=== PATIENT | female | born 1995 | race Caucasian/White ===

== ENCOUNTER 2017-12-05 23:00 | Emergency (ER) | payer OTHER ==
--- NOTE | 2017-12-05 23:57 | ED Physician Documentation ---
PD HPI NECK PAIN - Stated complaint Stated Complaint: NECK PX - Chief complaint Chief Complaint: Trauma Hd/Nk - History obtained from History obtained from: Patient - History of Present Illness Timing - onset: Enter time (21:30), Today Timing - details: Abrupt onset Location: Mid, Lower, Left Quality: Pain, Spasm Associated symptoms: No: Weakness, Numbness, Incontinent of urine, Unable to urinate, Hematuria, Incontinent of stool Improves with: Rest Worsened by: Movement Similar symptoms before: Has not had sx before Recently seen: Not recently seen - Additional information Additional information: When getting out of shower tonight, sudden onset left-sided posterior neck pain that is distinctly worse with movement. denies numbness, weakness. Denies h/o similar problem. Review of Systems Musculoskeletal: reports: Neck pain. denies: Back pain Neurologic: denies: Generalized weakness, Focal weakness, Numbness, Headache, Head injury PD PAST MEDICAL HISTORY - Past Medical History Past Medical History: No - Past Surgical History Past Surgical History: No - Present Medications Home Medications: Ambulatory Orders Medication Instructions Recorded Confirmed Cyclobenzaprine [Flexeril] 10 mg PO TID PRN #20 tablet 12/06/17 oxyCODONE/ACET 5/325 [Percocet 5 1 - 2 each PO Q6H PRN #14 tablet 12/06/17 mg/325 mg] - Allergies Allergies/Adverse Reactions: Allergies Allergy/AdvReac Type Severity Reaction Status Date / Time No Known Drug Allergies Allergy Verified 12/05/17 23:10 - Social History Does the pt smoke?: No Smoking Status: Never smoker Does the pt drink ETOH?: No - Immunizations Immunizations are current?: Yes - POLST Patient has POLST: No PD ED PE NORMAL - Vitals Vital signs reviewed: Yes - General General: Alert and oriented X 3, No acute distress (NAD but maintaining head in "looking straight ahead" position. 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 Will trial muscle relaxant (flexeril) and analgesic (percocet), rest, and return if worse Departure - Departure Disposition: Home, Self Care Clinical Impression: Cervical strain Condition: Good Instructions: ED Sprain Strain Neck, ED Spasm Neck No Injury Follow-Up: LURDES MARIANO PA-C [Primary Care Provider] - Prescriptions: Cyclobenzaprine [Flexeril] 10 mg PO TID PRN #20 tablet PRN Reason: Spasms oxyCODONE/ACET 5/325 [Percocet 5 mg/325 mg] 1 - 2 each PO Q6H PRN #14 tablet PRN Reason: Pain Forms: Activity restrictions Discharge Date/Time: 12/06/17 00:30
[2017-12-06] MEDS ORDERED: CYCLOBENZAPRINE 10 MG Prepack 2 PO STA (00:16)
[2017-12-06] MEDS ORDERED: oxyCODONE/ACET 5/325 Prepack 4 PO STA (00:16)
[2017-12-06 00:40] VITALS: BP 118/80
== END 2017-12-06 00:30 | disposition home or self-care (01) ==
LOC: ED 23:00
DX: S16.1XXA Strain of muscle, fascia and tendon at neck level, initial encounter (principal); X58.XXXA Exposure to other specified factors, initial encounter
CPT/HCPCS: 99283

== ENCOUNTER 2019-05-10 14:42 | Outpatient (CLI) | payer OTHER ==
--- NOTE | 2019-05-10 16:20 | MRI Report ---
Reason: HEADACHE, HYPOTHROIDISM, SLUGGISH LT PUPIL Procedure Date: 05/10/2019 Accession Number: [id number] / [id number] Procedure: MRI - Brain W/O CPT Code: FULL RESULT: EXAM: MRI BRAIN WITHOUT CONTRAST EXAM DATE: 05/10/2019 03:44 PM. CLINICAL HISTORY: Headache, hypothyroidism, sluggish left pupil. COMPARISON: None. TECHNIQUE: Multiplanar, multisequence T1-weighted and fluid-sensitive MR sequences of the brain were performed. Sequences optimized for routine evaluation. Other: None. IV Contrast: None. FINDINGS: No abnormal restricted diffusion signal or magnetic susceptibility is present in the brain parenchyma. The sella turcica is partially empty and slightly expanded. Ventricles and sulci are within normal limits. No extraaxial fluid collections present. No abnormal T2 or FLAIR hyperintensities are present in the brain parenchyma. No mass is present in either orbit. No abnormal T1 shortening is seen in the brain parenchyma. There is an expected flow-void in the major intracranial vessels at the skull base. IMPRESSION: 1. No acute CVA. 2. No intracranial mass. 3. There is a partially empty and slightly expanded sella turcica. This could reflect normal anatomic variation. Clinical correlation for signs of idiopathic intracranial hypertension/pseudotumor cerebri would be of value. RADIA
== END 2019-05-10 14:43 | disposition home or self-care (01) ==
LOC: DI 14:42
PROVIDERS: ATTEND General Practice
DX: R51 Headache (principal)
CPT/HCPCS: 70551

== ENCOUNTER 2019-10-21 23:26 | Emergency (ER) | payer OTHER ==
--- NOTE | 2019-10-21 23:38 | ED Physician Documentation ---
History of Present Illness - Stated complaint Stated Complaint: MIR/STIFF NECK - Chief complaint Chief Complaint: Neuro - History obtained from History obtained from: Patient (The patient is a 24-year-old female presents to the ER with a chief complaint of 3 to 4-day headache after she had a lumbar puncture for diagnostic study for idiopathic intracranial hypertension [facility]. Today she is present with headache that is not relieved by lying supine it is worse when she has to sit upright she reports nausea photophobia and neck discomfort without fevers.She tried taking aspirin as well as Tylenol and ibuprofen without residual of her symptoms.) Review of Systems Constitutional: reports: Reviewed and negative Eyes: reports: Reviewed and negative Ears: reports: Reviewed and negative Nose: reports: Reviewed and negative Throat: reports: Reviewed and negative Cardiac: reports: Reviewed and negative Respiratory: reports: Reviewed and negative GI: reports: Reviewed and negative : reports: Reviewed and negative Skin: reports: Reviewed and negative Musculoskeletal: reports: Reviewed and negative Neurologic: reports: Headache Psychiatric: reports: Reviewed and negative Endocrine: reports: Reviewed and negative Immunocompromised: reports: Reviewed and negative PD PAST MEDICAL HISTORY - Past Surgical History Past Surgical History: No - Present Medications Home Medications: Ambulatory Orders Medication Instructions Recorded Confirmed Levothyroxine [Synthroid] 125 mcg PO DAILY 10/21/19 10/21/19 Metformin HCl 500 mg PO DAILY 10/21/19 10/21/19 Sertraline HCl [Zoloft] 100 mg PO DAILY 10/21/19 10/21/19 buPROPion HCL [Bupropion HCl] 100 mg PO DAILY 10/21/19 10/21/19 Hydrocodone/Acetaminophen [[place] 1 each PO Q6HR PRN #7 tablet 10/22/19 5-325 Tablet] Ondansetron Odt [Zofran] 4 mg TL Q6H PRN #10 tablet 10/22/19 - Allergies Allergies/Adverse Reactions: Allergies Allergy/AdvReac Type Severity Reaction Status Date / Time No Known Drug Allergies Allergy Verified 10/21/19 23:38 - Social History Does the pt smoke?: No Smoking Status: Never smoker Does the pt drink ETOH?: No - Immunizations Immunizations are current?: Yes - POLST Patient has POLST: No PD ED PE NORMAL - Vitals Vital signs reviewed: Yes - General General: Alert and oriented X 3, No acute distress, Well developed/nourished, Other - HEENT HEENT: Atraumatic, PERRL, EOMI, Ears normal, Moist mucous membranes, Pharynx benign, Dentition benign - Neck Neck: Supple, no meningeal sign, No bony TTP, Thyroid normal, No JVD - Cardiac Cardiac: RRR, No murmur, Strong equal pulses - Respiratory Respiratory: No respiratory distress, Clear bilaterally - Abdomen Abdomen: Normal bowel sounds, Soft, Non tender, Non distended, No organomegaly - Back Back: No CVA TTP, No spinal TTP, Other (The lumbar midline space is without signs of infection there is no fluctuance or induration there is no mid line tenderness palpation.) - Derm Derm: Normal color, Warm and dry, No rash - Extremities Extremities: No deformity, No tenderness to palpate, Normal ROM s pain, No edema - Neuro Neuro: Alert and oriented X 3, 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, No motor deficit, No sensory deficit, Normal speech - Psych Psych: Normal mood, Normal affect Results - Vitals Vitals: Vital Signs - 24 hr 10/21/19 10/22/19 10/22/19 23:30 00:50 01:33 Temperature 36.5 C Heart Rate 75 62 74 Respiratory 16 16 15 Rate Blood Pressure 122/91 H 142/78 H 140/87 H O2 Saturation 97 99 100 10/22/19 01:52 Temperature 36.2 C L Heart Rate 74 Respiratory 16 Rate Blood Pressure 127/87 H O2 Saturation 100 Oxygen O2 Source Room air - Labs Labs: Laboratory Tests 10/22/19 10/22/19 10/22/19 00:10 00:10 00:10 WBC 8.2 RBC 5.32 Hgb 13.1 Hct 41.7 MCV 78.4 L MCH 24.6 L MCHC 31.4 L RDW 14.7 Plt Count 250 MPV 10.7 Neut # (Auto) 4.7 Lymph # (Auto) 2.6 [place] # (Auto) 0.7 Eos # (Auto) 0.1 Baso # (Auto) 0.0 Absolute Nucleated RBC 0.00 Nucleated RBC % 0.0 PT 12.4 INR 1.1 APTT 34.2 H Sodium 136 Potassium 3.5 Chloride 102 Carbon Dioxide 26 Anion Gap 8.0 BUN 13 Creatinine 1.0 Estimated GFR (MDRD) 69 L Glucose 93 Calcium 9.0 PD MEDICAL DECISION MAKING - ED course Complexity details: re-evaluated patient (01:57 pain resolved.), considered differential (post LP headache. ), d/w patient, d/w disaster recovery consultant - Consults Consults: Consulted (name) (nigel DELGADO), Discussed case with (cielo singh for EDBP.), Request disaster recovery consultant evaluate patient (EDBP, GATE GUARD will come evaluate patient.) Departure - Departure Disposition: 01 Home, Self Care Clinical Impression: Post lumbar puncture headache Condition: Stable Instructions: ED Headache Post Spinal Tap W Patch Follow-Up: Oscar Hollis MD [Primary Care Provider] - 10/22/19 Prescriptions: Hydrocodone/Acetaminophen [[place] 5-325 Tablet] 1 each PO Q6HR PRN #7 tablet PRN Reason: Pain Ondansetron Odt [Zofran] 4 mg TL Q6H PRN #10 tablet PRN Reason: Nausea / Vomiting Discharge Date/Time: 10/22/19 02:04
[2019-10-21] MEDS ORDERED: ONDANSETRON ODT 4 MG TABLET TL STA (23:50)
[2019-10-21] MEDS ORDERED: HYDROcod/ACETAM 5/325 MG TABLET PO STA (23:50)
[2019-10-21] MEDS ORDERED: CAFFEINE/SODIUM BENZOATE 500 MG in SODIUM CHLORIDE 0.9% 1,000 ML IV STA (23:54)
[2019-10-21] MEDS ORDERED: SODIUM CHLORIDE 0.9% 1,000 ML IV ONE (23:54)
[2019-10-22] MEDS ORDERED: CAFFEINE/SODIUM BENZOATE 500 MG/2 ML VIAL IV ONE (00:04)
[2019-10-22 00:22] LABS: BASOPHILS % (AUTO) 0.5 %; EOSINOPHILS # (AUTO) 0.1 10^3/uL (0.0-0.7); EOSINOPHILS % (AUTO) 1.6 %; HGB - HEMOGLOBIN 13.1 g/dL (12.0-16.0); LYMPHOCYTES # (AUTO) 2.6 10^3/uL (1.5-3.5); LYMPHOCYTES % (AUTO) 31.7 %; MEAN CORPUSCULAR HEMOGLOBIN 24.6 pg (27.0-31.0); MEAN CORPUSCULAR HGB CONC 31.4 g/dL (32.0-36.0); MEAN CORPUSCULAR VOLUME 78.4 fL (81.0-99.0); MEAN PLATELET VOLUME 10.7 fL (7.9-10.8); MONOCYTES # (AUTO) 0.7 10^3/uL (0.0-1.0); MONOCYTES % (AUTO) 8.4 %; NEUTROPHILS # (AUTO) 4.7 10^3/uL (1.5-6.6); NEUTROPHILS % (AUTO) 57.4 %; PLT - PLATELET COUNT 250 10^3/uL (130-450); RED BLOOD COUNT 5.32 10^6/uL (4.20-5.40); RED CELL DISTRIBUTION WIDTH 14.7 % (12.0-15.0); WHITE BLOOD COUNT 8.2 x10^3/uL (4.8-10.8)
[2019-10-22 00:28] LABS: INR 1.1 (0.8-1.2); PT - PROTHROMBIN TIME 12.4 secs (9.9-12.6)
[2019-10-22 00:35] LABS: PARTIAL THROMBOPLASTIN TIME 34.2 secs (24.9-33.3)
[2019-10-22 02:04] VITALS: BP 127/87
== END 2019-10-22 02:04 | disposition home or self-care (01) ==
LOC: ED 23:26
DX: G97.1 Other reaction to spinal and lumbar puncture (principal); Y84.4 Aspiration of fluid as the cause of abnormal reaction of the patient, or of later complication, without mention of misadventure at the time of the procedure; Y92.538 Other ambulatory health services establishments as the place of occurrence of the external cause
CPT/HCPCS: 36415; 80048; 85025; 85610; 85730; 96365; 99284; A9270; Q0162

== ENCOUNTER 2020-03-24 22:07 | Emergency (ER) | payer OTHER ==
--- NOTE | 2020-03-24 23:20 | ED Physician Documentation ---
PD HPI NVD - Stated complaint Stated Complaint: N/V/D/ DIZZINESS - Chief complaint Chief Complaint: Abd Pain - History obtained from History obtained from: Patient - History of Present Illness Timing - onset: Today Timing - duration: Hours Timing - details: Abrupt onset Pain level now: 0 Associated symptoms: No: Fever, Abdominal pain Contributing factors: Recent antibiotics Improved by: Other (nothing) Worsened by: Other (no exacerbating factors) Recently seen: Clinic - Additonal information Additional information: Patient was seen by her doctor yesterday for urinary frequency and burning dysuria, diagnosed with UTI and prescribed Bactrim. She was also prescribed pyridium. She took the first dose of these medications earlier today, and within one hour, she developed nausea, vomiting, and diarrhea. She has never had bactrim before. Review of Systems Constitutional: reports: Reviewed and negative Cardiac: reports: Reviewed and negative Respiratory: reports: Reviewed and negative GI: reports: Nausea, Vomiting, Diarrhea. 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 Psych: Depression, Anxiety - Past Surgical History Past Surgical History: No - Present Medications Home Medications: Ambulatory Orders Medication Instructions Recorded Confirmed Levothyroxine [Synthroid] 125 mcg PO DAILY 10/21/19 10/21/19 Metformin HCl 500 mg PO DAILY 10/21/19 10/21/19 Sertraline HCl [Zoloft] 100 mg PO DAILY 10/21/19 10/21/19 buPROPion HCL [Bupropion HCl] 100 mg PO DAILY 10/21/19 10/21/19 Hydrocodone/Acetaminophen [[place] 1 each PO Q6HR PRN #7 tablet 10/22/19 5-325 Tablet] Ondansetron Odt [Zofran] 4 mg TL Q6H PRN #10 tablet 10/22/19 Cephalexin [Keflex] 500 mg PO Q6H #28 capsule 03/25/20 Diphenoxylate/Atropine [Lomotil] 1 each PO QID PRN #10 tablet 03/25/20 Ondansetron Odt [Zofran] 4 mg TL Q6H PRN #10 tablet 03/25/20 - Allergies Allergies/Adverse Reactions: Allergies Allergy/AdvReac Type Severity Reaction Status Date / Time No Known Drug Allergies Allergy Verified 03/24/20 22:23 - Social History Does the pt smoke?: No Smoking Status: Never smoker Does the pt drink ETOH?: No - Immunizations Immunizations are current?: Yes - POLST Patient has POLST: No PD ED PE NORMAL - Vitals Vital signs reviewed: Yes - General General: Alert and oriented X 3, No acute distress, Well developed/nourished - HEENT HEENT: Moist mucous membranes - Cardiac Cardiac: RRR, No murmur - Respiratory Respiratory: No respiratory distress, Clear bilaterally - Abdomen Abdomen: Soft, Non tender, Non distended - Derm Derm: No rash Results - Vitals Vitals: Vital Signs - 24 hr 03/24/20 03/25/20 22:21 01:45 Temperature 36.0 C L Heart Rate 104 H 88 Respiratory 18 16 Rate Blood Pressure 93/60 104/68 O2 Saturation 97 98 Oxygen O2 Source Room air - Labs Labs: Laboratory Tests 03/24/20 03/24/20 03/24/20 22:35 22:35 23:46 WBC 10.0 RBC 5.80 H Hgb 14.6 Hct 45.6 MCV 78.6 L MCH 25.2 L MCHC 32.0 RDW 15.0 Plt Count 287 MPV 11.4 H Neut # (Auto) 8.2 H Lymph # (Auto) 1.5 [place] # (Auto) 0.2 Eos # (Auto) 0.0 Baso # (Auto) 0.0 Absolute Nucleated RBC 0.00 Nucleated RBC % 0.0 Sodium 135 Potassium 2.9 L Chloride 104 Carbon Dioxide 20 L Anion Gap 11.0 BUN 20 Creatinine 1.0 Estimated GFR (MDRD) 68 L Glucose 153 H Calcium 9.5 Total Bilirubin 0.6 AST 17 ALT 17 Alkaline Phosphatase 61 Total Protein 8.3 H Albumin 4.7 Globulin 3.6 Albumin/Globulin Ratio 1.3 Lipase 34 Urine Color RED/BLOODY Urine Clarity CLEAR Urine pH 5.0 Ur Specific [place] 1.025 Urine Protein Urine Glucose (UA) 250 H Urine Ketones TRACE Urine Occult Blood LARGE H Urine Nitrite Urine Bilirubin COLOR INTERFERENCE Urine Urobilinogen Ur Leukocyte Esterase Urine RBC 11-25 H Urine WBC 11-25 H Ur Squamous Epith Cells RARE Squamous Amorphous Sediment Few Urine Bacteria Moderate H Ur Microscopic Review INDICATED Urine Culture Comments INDICATED Urine HCG, Qual NEGATIVE PD MEDICAL DECISION MAKING - ED course Complexity details: reviewed results, re-evaluated patient, considered differential, d/w patient Departure - Departure Disposition: 01 Home, Self Care Clinical Impression: Vomiting and diarrhea, UTI (urinary tract infection), Hypokalemia Condition: Good Instructions: ED Diet Vomiting Diarrhea, ED Drug React Adverse Other, ED Potassium Deficiency, ED UTI Cystitis Female Follow-Up: Oscar Hollis MD [Primary Care Provider] - Prescriptions: Cephalexin [Keflex] 500 mg PO Q6H #28 capsule Diphenoxylate/Atropine [Lomotil] 1 each PO QID PRN #10 tablet PRN Reason: Diarrhea Ondansetron Odt [Zofran] 4 mg TL Q6H PRN #10 tablet PRN Reason: Nausea / Vomiting Discharge Date/Time: 03/25/20 01:50
[2020-03-24] MEDS ORDERED: SODIUM CHLORIDE 0.9% 1,000 ML IV STA (23:21)
[2020-03-24 23:29] LABS: BASOPHILS % (AUTO) 0.2 %; EOSINOPHILS % (AUTO) 0.2 %; HGB - HEMOGLOBIN 14.6 g/dL (12.0-16.0); LYMPHOCYTES # (AUTO) 1.5 10^3/uL (1.5-3.5); LYMPHOCYTES % (AUTO) 15.2 %; MEAN CORPUSCULAR HEMOGLOBIN 25.2 pg (27.0-31.0); MEAN CORPUSCULAR VOLUME 78.6 fL (81.0-99.0); MEAN PLATELET VOLUME 11.4 fL (7.9-10.8); MONOCYTES # (AUTO) 0.2 10^3/uL (0.0-1.0); MONOCYTES % (AUTO) 2.4 %; NEUTROPHILS # (AUTO) 8.2 10^3/uL (1.5-6.6); NEUTROPHILS % (AUTO) 81.7 %; PLT - PLATELET COUNT 287 10^3/uL (130-450)
[2020-03-24 23:39] LABS: ALBUMIN 4.7 g/dL (3.2-5.5); ALBUMIN/GLOBULIN RATIO 1.3 (1.0-2.2); BILIRUBIN,TOTAL 0.6 mg/dL (0.2-1.0); CALCIUM 9.5 mg/dL (8.5-10.3); TOTAL PROTEIN 8.3 g/dL (6.7-8.2)
[2020-03-24] MEDS ORDERED: ONDANSETRON 4 MG/2 ML VIAL IVP STA (23:50)
[2020-03-25 00:02] LABS: GLUCOSE, URINE (UA) 250 mg/dL (NEGATIVE); KETONES,URINE (UA) TRACE mg/dL (NEGATIVE)
[2020-03-25 00:05] LABS: CLARITY,URINE CLEAR (CLEAR)
[2020-03-25 00:06] LABS: HCG UR QUAL NEGATIVE; OCCULT BLOOD,URINE LARGE (NEGATIVE)
[2020-03-25 00:07] LABS: BILIRUBIN,URINE COLOR INTERFERENCE (NEGATIVE)
[2020-03-25 00:12] LABS: AMORPHOUS SEDIMENT,UR Few /LPF; BACTERIA,URINE Moderate /HPF (None Seen); SQUAMOUS EPITHELIAL CELL,UR RARE Squamous (<= Few)
[2020-03-25] MEDS ORDERED: DIPHENOX/ATROPINE 2.5/0.025 MG TABLET PO STA (00:35)
[2020-03-25] MEDS ORDERED: POTASSIUM CHLORIDE 20 MEQ TABLET PO STA (00:35)
[2020-03-25] MEDS ORDERED: cefTRIAXone 1 GM in SODIUM CHLORIDE 0.9% MINIBAG 100 ML IV STA (00:35)
[2020-03-25] MEDS ORDERED: cefTRIAXone 1 GM VIAL ONE (00:46)
[2020-03-25 02:04] VITALS: BP 104/68
== END 2020-03-25 01:50 | disposition home or self-care (01) ==
LOC: ED 22:07
DX: R11.2 Nausea with vomiting, unspecified (principal); R19.7 Diarrhea, unspecified; N39.0 Urinary tract infection, site not specified; E87.6 Hypokalemia
CPT/HCPCS: 36415; 80053; 81001; 81025; 83690; 85025; 87086; 96361; 96365; 96375; 99283; 99284; A9270; 81003